=== PATIENT | male | born 1990 | race African-American/Black ===

== ENCOUNTER 2017-04-04 20:12 | Emergency (ER) | payer MEDICAID ==
[~2017-04-04] VITALS: Ht 180.3 cm; Wt 78.5 kg
[~2017-04-04 20:12] MED LIST: IBUPROFEN600 MG ORAL; KEFLEX500 MG ORAL
[2017-04-04] MEDS ORDERED: NKM (21:00)
--- NOTE | 2017-04-04 21:19 | Emergency Room Report ---
History of Present Illness General Chief Complaint: Gastrointestinal Bleed Source: Patient Present Illness HPI Patient is a 26-year-old male presented after increased blood in the stools. Patient was noted to have recent episode of straining at stool and subsequently noticed having some blood on the tissue paper with wiping. The patient reported having some subjective fever. He had not been vomiting. He denied any diarrhea. Patient had a visit to [facility]. Patient reported having some evidence of iron deficiency on his laboratory testing as well as a low white blood count. Patient had advised to followup for reexamination. The patient presented for further evaluation of bleeding. He denies any dizziness. Allergies: Coded Allergies: No Known Allergies (Unverified , 04/17/16) Patient History Reviewed Nursing Documentation: PMH: Agreed, PSxH: Agreed Nursing Documentation-PMH Past Medical History: No Stated History Review of Systems All Other Systems: negative except mentioned in HPI Physical Exam Vital Signs Date Time Temp Pulse Resp B/P (MAP) Pulse Ox O2 Delivery O2 Flow Rate FiO2 04/04/17 20:55 98.8 64 16 130/70 99 Room Air General Appearance: well appearing, no apparent distress, alert, GCS 15 Head: normocephalic, atraumatic ENT: hearing grossly normal, normal voice Neck: full range of motion, supple Respiratory: chest non-tender, lungs clear, normal breath sounds, no respiratory distress, speaking full sentences Cardiovascular #1: normal peripheral pulses, regular rate, rhythm, no edema Gastrointestinal: normal inspection, normal bowel sounds, non tender, soft Rectal: deferred Musculoskeletal: normal inspection, back normal, digits/nails normal, gait/ station normal, no calf tenderness Neurologic: normal inspection, alert, oriented x3, responsive, iron cutter III-XII nml as tested, normal gait Psychiatric: mood/affect normal Skin: no rash Medical Decision Making Diagnostic Impression: Primary Impression: Anemia ER Course Patient presented for rectal bleeding. Differential diagnosis included hemorrhoids, fissure, Fournieres gangrene, cellulitis, diverticular bleeding, peptic ulcer disease among others. Patient's benign exam and does not appear to require any further imaging or laboratory testing at this time the patient reportedly had a recent blood test at [facility]. The patient noted have no symptoms consistent with severe anemia. Patient was given prescriptions for iron as well as Colace for constipation. He is advised to followup with primary care physician for further evaluation and Std testing. Last Vital Signs Date Time Temp Pulse Resp B/P (MAP) Pulse Ox O2 Delivery O2 Flow Rate FiO2 04/04/17 20:55 98.8 64 16 130/70 99 Room Air Status: improved Disposition: HOME, SELF-CARE Condition: Stable Scripts Ferrous Sulfate (IRON) 325 Mg Tablet 325 MG PO DAILY, #30 TAB Prov: Daniele Kelly 04/04/17 Docusate Sodium* (COLACE*) 100 Mg Capsule 100 MG ORAL TWICE A DAY, #60 CAP Prov: Daniele Kelly 04/04/17 Daniele Kelly Apr 04, 2017 21:19
[2017-04-04] MEDS ORDERED: COLACE100 MG ORAL (21:24)
[2017-04-04] MEDS ORDERED: IRON325 M1 PO (21:24)
[2017-04-04 21:30] VITALS: BP 130/70
== END 2017-04-04 21:30 | disposition home or self-care (01) ==
LOC: EMR 21:13
DX: D64.9 Anemia, unspecified (principal); K92.1 Melena
CPT/HCPCS: 99283

== ENCOUNTER 2020-01-01 14:53 | Emergency (ER) | payer MEDICAID, OTHER ==
[~2020-01-01] VITALS: Ht 175.3 cm; Wt 86.2 kg
[~2020-01-01 14:53] MED LIST changes: +COLACE100 MG ORAL; +IRON325 M1 PO; +NKM
[2020-01-01] MEDS ORDERED: HIV MEDICATION ORAL (15:07)
[2020-01-01 15:10] VITALS: BP 119/71
--- NOTE | 2020-01-01 15:19 | NUR ---
ED Nurse Note:pt. came with rash on body possible allergic reaction, seen by ER PA
--- NOTE | 2020-01-01 15:26 | Emergency Room Report ---
History of Present Illness General Chief Complaint: Skin Rash/Abscess Source: Patient Present Illness HPI 29-year-old male presents to the emergency department complaining of nonpainful but itchy generalized/diffuse rash to the upper extremities, torso, back and bilateral thighs x3 days. Patient reports he just began using hydrocortisone cream and taking Benadryl as well as using calamine lotion yesterday. Patient reports little relief from these medications. Pt. denies fevers, chills or swollen tender lymph nodes. Denies lesions/rashes elsewhere on the body. Denies new medications or body washes. He reports new sheets, new parfume/roller, and new detergent. Denies swelling of the lips, tongue , throat or airway. Denies wheezing, or shortness of breath. Denies recent travel, recent illness or ill contacts. denies blisters, oral lesions, or sloughing of the skin Allergies: Coded Allergies: No Known Allergies (Unverified , 04/17/16) COVID-19 Screening Contact w/high risk pt: No Experienced COVID-19 symptoms?: No COVID-19 Testing performed DIRECTOR OF PATIENT SAFETY: Yes - one month ago COVID-19 Screening: Negative COVID-19 COVID-19 Testing Source: [employer] Patient History Past Medical History: see triage record Past Surgical History: none Pertinent Family History: none Reviewed Nursing Documentation: PMH: Agreed; PSxH: Agreed Nursing Documentation-PMH Past Medical History: No Stated History Review of Systems All Other Systems: negative except mentioned in HPI Physical Exam Vital Signs Date Time Temp Pulse Resp B/P (MAP) Pulse Ox O2 Delivery O2 Flow Rate FiO2 01/01/20 15:02 97.9 74 14 119/71 (87) 99 Room Air Sp02 EP Interpretation: reviewed, normal General Appearance: no apparent distress, alert, GCS 15, non-toxic Head: normocephalic, atraumatic Eyes: bilateral eye normal inspection, bilateral eye PERRL ENT: hearing grossly normal, normal voice Neck: full range of motion Respiratory: lungs clear, normal breath sounds, no respiratory distress, no accessory muscle use, no wheezing, speaking full sentences, other - no stridor Cardiovascular #1: regular rate, rhythm, normal capillary refill Musculoskeletal: normal range of motion, gait/station normal, non-tender Neurologic: alert, motor strength/tone normal, oriented x3, sensory intact, responsive, speech normal Psychiatric: judgement/insight normal Skin: rash - Diffuse urticarial type plaques generalized on bilateral upper extremities, torso, back and thighs. Extensively on flexural surfaces. No blisters or vesicles. No sloughing of the skin. Lymphatic: no adenopathy Medical Decision Making PA Attestation Dr. Rosado Is my supervising Physician whom patient management has been discussed with. Diagnostic Impression: Primary Impression: Rash and other nonspecific skin eruption ER Course 29-year-old male presents to the emergency department complaining of nonpainful but itchy generalized/diffuse rash to the upper extremities, torso, back and bilateral thighs x3 days. Patient reports he just began using hydrocortisone cream and taking Benadryl as well as using calamine lotion yesterday. Patient reports little relief from these medications. Pt. denies fevers, chills or swollen tender lymph nodes. Denies lesions/rashes elsewhere on the body. Denies new medications or body washes. He reports new sheets, new parfume/roller, and new detergent. Denies swelling of the lips, tongue , throat or airway. Denies wheezing, or shortness of breath. Denies recent travel, recent illness or ill contacts. denies blisters, oral lesions, or sloughing of the skin Ddx considered but are not limited to cellulitis, scabies, shingles, varicella, dermatitis, urticaria, eczema, tinea, viral exanthem, SJS Vital signs: are WNL, pt. is afebrile H&PE are most consistent with urticaria/nonspecific skin reaction. No evidence of viral exanthem. No evidence to suggest acute impending airway compromise or anaphylaxis. ORDERS: none required at this time, the diagnosis is clinical ED INTERVENTIONS: None required at this time. DISCHARGE: At this time pt. is stable for d/c to home. Will provide printed patient care instructions, and any necessary prescriptions. Care plan and follow up instructions have been discussed with the patient prior to discharge. Last Vital Signs Date Time Temp Pulse Resp B/P (MAP) Pulse Ox O2 Delivery O2 Flow Rate FiO2 01/01/20 15:10 97.9 14 119/71 99 Room Air 01/01/20 15:02 74 Disposition: HOME, SELF-CARE Condition: Stable Referrals: [facility]ERR[facility] (PCP) Patient Instructions: Rash Additional Instructions: Take medications as directed. Do not drink alcohol, drive, or operate heavy machinery while taking Hydroxyzine as this may cause drowsiness. Follow up with a Primary Care Provider in 3-5 days, even if your symptoms have resolved. 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 Return sooner to ED if new symptoms occur, or current symptoms become worse. - Please note that this Emergency Department Report was dictated using [employer] programmer technology software, occasionally this can lead to erroneous entry secondary to interpretation by the dictation equipment. Patrica Martinez Jan 01, 2020 15:26
[2020-01-01] MEDS ORDERED: ATARAX25 MG ORAL (15:29)
[2020-01-01] MEDS ORDERED: PREDNISONE20 MG ORAL (15:29)
--- NOTE | 2020-01-01 15:35 | NUR ---
ED Nurse Note: Pt cleared by health care Provider for discharge. DC instructions/prescription was given and explained to pt and verbalized understanding of teachings. All medical deviecs such as ID band removed. Pt is AAO x4, ambulatory and left with all personal belongings.
[2020-01-01 15:36] VITALS: BP 119/71
== END 2020-01-01 15:40 | disposition home or self-care (01) ==
LOC: EMR 15:08
DX: R21 Rash and other nonspecific skin eruption (principal)
CPT/HCPCS: 99282